=== PATIENT | male | born 2005 | race Caucasian/White ===

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

== ENCOUNTER 2025-03-02 08:54 | Emergency (ER) | payer BC ==
[2025-03-02] MEDS ORDERED: Ibuprofen 200 MG TAB ONE (09:18)
== END 2025-03-02 09:50 | disposition home or self-care (01) ==
LOC: BURERS 08:54
DX: S60.021A Contusion of right index finger without damage to nail, initial encounter (principal); F17.290 Nicotine dependence, other tobacco product, uncomplicated; W20.8XXA Other cause of strike by thrown, projected or falling object, initial encounter; Y99.0 Civilian activity done for income or pay
CPT/HCPCS: 99283